=== PATIENT | female | born 1980 | race Caucasian/White ===

== ENCOUNTER 2020-07-08 09:27 | Emergency (ER) | payer OTHER ==
[~2020-07-08] VITALS: Ht 154.9 cm; Wt 59.4 kg
[2020-07-08] MEDS ORDERED: MYRBETRIQ25 MG (09:59)
[2020-07-08] MEDS ORDERED: CABERGOLINE0.5 MG (10:00)
[2020-07-08] MEDS ORDERED: CEVIMELINE HCL30 MG (10:00)
== END 2020-07-08 13:29 | disposition home or self-care (01) ==
LOC: ER 09:27
DX: M62.838 Other muscle spasm (principal)

== ENCOUNTER 2021-05-03 08:00 | Outpatient (CLI) | payer OTHER ==
[~2021-05-03 08:00] MED LIST: CABERGOLINE0.5 MG; CEVIMELINE HCL30 MG; MYRBETRIQ25 MG
== END 2021-05-03 08:30 | disposition home or self-care (01) ==
LOC: PPH VACUNA 08:00
PROVIDERS: ATTEND Emergency Medicine Pediatric Emergency Medicine
DX: Z23 Encounter for immunization (principal)

== ENCOUNTER 2022-04-16 08:09 | Outpatient (CLI) | payer OTHER | END 2022-04-16 11:42 | disposition home or self-care (01) | LOC: NUCLEAR 08:09 | PROVIDERS: ATTEND Internal Medicine Rheumatology | DX: I73.00 Raynaud's syndrome without gangrene (principal); M35.01 Sjogren syndrome with keratoconjunctivitis ==

== ENCOUNTER 2022-04-17 08:28 | Outpatient (CLI) | payer OTHER | END 2022-04-17 08:29 | disposition home or self-care (01) | LOC: NUCLEAR 08:28 | PROVIDERS: ATTEND Internal Medicine Rheumatology | DX: I80.8 Phlebitis and thrombophlebitis of other sites (principal) ==